=== PATIENT | female | born 1980 | race Caucasian/White ===

== ENCOUNTER 2018-09-17 22:20 | Emergency (ER) | payer OTHER ==
[~2018-09-17] VITALS: Ht 165.1 cm; Wt 49.9 kg
--- NOTE | 2018-09-17 23:23 | NUR ---
Patient ambulated with stable gait. AAOx4. Speech is clear, speaks in complete sentences. No neuro deficits noted. Patient came with c/o left groin boil x2 weeks. Respiratory even and unlabored, no sob, no cough. No cardiovascular distress, all pulses palpable. No GI/ distress. Patient in bed at lowest position, side rails upx2, call light within reach. Fall precautions implemented per protocol.
--- NOTE | 2018-09-17 23:24 | NUR ---
Patient discharged to home in stable conditon. Written and verbal after care instructions given. Patient verbalizes understanding of instructions. Patient ambulated with stable gait.
[2018-09-17 23:25] VITALS: BP 120/68
== END 2018-09-17 23:26 | disposition home or self-care (01) ==
LOC: ER 22:20
DX: N75.0 Cyst of Bartholin's gland (principal)
CPT/HCPCS: A4663

== ENCOUNTER 2018-11-20 22:00 | Emergency (ER) | payer OTHER ==
[~2018-11-20] VITALS: Ht 165.1 cm; Wt 45.4 kg
[2018-11-20] MEDS ORDERED: HYDROMORPHONE 1 MG/1 ML DISP.SYRIN ONE (23:12)
[2018-11-20] MEDS ORDERED: ONDANSETRON 4 MG/2 ML VIAL ONE (23:13)
[2018-11-20] MEDS ORDERED: ONDANSETRON 4 MG/2 ML VIAL IM ONE (23:15)
[2018-11-20] MEDS ORDERED: HYDROMORPHONE 1 MG/1 ML DISP.SYRIN IM ONE (23:15)
--- NOTE | 2018-11-20 23:20 | NUR ---
Dr Chamberlain into do I/D with Kevon MERINO as a follow up specialist
[2018-11-20 23:41] VITALS: BP 115/77
--- NOTE | 2018-11-20 23:46 | NUR ---
Patient discharged to home in stable conditon. Written and verbal after care instructions given. Patient verbalizes understanding of instructions. Walked out of ER with no distress noted
== END 2018-11-20 23:47 | disposition home or self-care (01) ==
LOC: ER 22:00
DX: N75.1 Abscess of Bartholin's gland (principal)
CPT/HCPCS: 30901; A4663; J1170; J2405